=== PATIENT | male | born 1940 | race Two or more races ===

== ENCOUNTER 2024-01-09 16:36 | Inpatient (IN) | payer OTHER ==
[~2024-01-09] VITALS: Ht 170.2 cm; Wt 74.8 kg
[2024-01-09] MEDS ORDERED: CHILDREN'S ASPI81 MG PO (16:49)
[2024-01-09] MEDS ORDERED: COZAAR50 MG PO (16:49)
[2024-01-09] MEDS ORDERED: SIMVASTATIN5 MG PO (16:49)
[2024-01-09] MEDS ORDERED: FLUOXETINE HCL60 MG PO (16:50)
[2024-01-09] MEDS ORDERED: PANTOPRAZOLE SO20 MG PO (16:50)
[2024-01-09] MEDS ORDERED: CLONAZEPAM0.5 MG PO (16:50)
--- NOTE | 2024-01-09 16:53 | NUR ---
SE RECIBE PTE MASCULINO ALERTA Y ORIENTADO SOLO EN PERSONA EN AMBULANCIA POR TOS Y DIFICULTAD RESPIRATORIA DESDE HOY A LA 1PM. SE OLE S/V Y SE UBICA EN AREA DE OBSERVACION PARA EVALUACION MEDICA.
--- NOTE | 2024-01-09 17:17 | NUR ---
PTE MASCULINO EVALUADO POR . SE ORIENTA A CUIDADORA SOBRE ORDEN DE TX REFIERE COMPRENDER. SE COLECTAN MUESTRAS DE LABORATORIOS, BAJO MEDIDAS ASEPTICAS. SE NOTIFICAN ABGS A PERSONAL DE TREAPIA RESPIRATORIA. SE NOTIFICA XARY PENDIENTE A RADIOLGOIA.
[2024-01-09 17:25] LABS: HEMATOCRIT 30.5 % (39.0-48.0); HEMOGLOBIN 10.5 g/dL (13-16.00); MEAN CELL VOLUME 90.2 fL (80.0-100.00); MEAN CORPUSCULAR HGB CONC 34.4 g/dl (32.0-36.0); PLATELET COUNT 171 K/uL (150-450); RED BLOOD COUNT 3.38 M/uL (4.00-6.00); RED CELL DISTRIBUTION WIDTH 13.6 % (11.5-14.5)
[2024-01-09 18:16] LABS: ALBUMIN 2.9 gm/dL (3.4-5.0); BILIRUBIN TOTAL 0.47 mg/dL (0.3-1.2); CALCIUM 8.6 mg/dL (8.5-10.1); CREATININE SERUM 1.83 mg/dL (0.70-1.30); GFR 35.53; GLOBULINA 2.6 G/DL (2.4-3.5); POTASSIUM 4.41 mEq/L (3.5-5.1); TOTAL PROTEIN 5.5 gm/dL (6.4-8.2)
[2024-01-09] MEDS ORDERED: ACETAMINOPHEN 500 MG GEL..CAP PO ONE (18:30)
[2024-01-09 19:10] LABS: URINE APPEARANCE Turbid; URINE BILIRRUBIN Negative (NEGATIVE); URINE BLOOD Large; URINE COLOR Yellow; URINE GLUCOSE Negative (NEGATIVE); URINE LEUKOCYTE Large; URINE NITRATE Negative
[2024-01-09 19:11] LABS: URINE EPITHELIAL CELLS 5.2 uL (0.0-38.8); URINE RBC 30.3 uL (0.0-20.8)
[2024-01-09 19:26] LABS: ABG PO2 79.1 mmHg (80-100); ABG pCO2 32.7 mmHg (35-45); BASE EXCESS -0.2 mmol/l; BICARBONATE 22.8 mmol/l (23-25); SaO2 96.3 %; Tco2 23.8 mmol/l
[2024-01-09 19:27] LABS: allen test SATISFACTORY; o2 21 %; puncture site RADIAL RIGHT
[2024-01-09 20:05] LABS: URINE BACTERIA > 9821.2 uL (0.0-1933); URINE PROTEIN 100 (NEGATIVE); URINE WBC > 5548.3 uL (0.0-23.2)
[2024-01-09] MEDS ORDERED: 0.9 % SODIUM CHLORIDE 1,000 ML IV SCH (21:00)
[2024-01-09] MEDS ORDERED: CEFTRIAXONE SODIUM 2,000 MG in 0.9 % SODIUM CHLORIDE 100 ML IV SCH (21:00)
[2024-01-09] MEDS ORDERED: FAMOTIDINE/PF 20 MG in 0.9 % SODIUM CHLORIDE 8 ML IV PUSH SCH (21:01)
[2024-01-09] MEDS ORDERED: ONDANSETRON HCL 4 MG in 0.9 % SODIUM CHLORIDE 50 ML IV PRN (21:15)
[2024-01-09] MEDS ORDERED: ACETAMINOPHEN 500 MG GEL..CAP PO PRN (21:15)
[2024-01-09 22:16] LABS: INR 1.14; PARTIAL THROMBOPLASTIN TIME 27.3 SECONDS (22.0-34.0); PROTHROMBIN TIME 11.9 SECONDS (9.0-11.5)
[2024-01-09 22:33] LABS: PHOSPHOROUS 1.2 mg/dL (2.5-4.9)
[2024-01-09] MEDS ORDERED: POTASSIUM PHOS,M-BASIC-D-BASIC 9 MM in 0.9 % SODIUM CHLORIDE 250 ML IV ONE (23:00)
[2024-01-10] MEDS ORDERED: LOSARTAN POTASSIUM 50 MG TABLET PO SCH (09:00)
[2024-01-10] MEDS ORDERED: ENOXAPARIN SODIUM 30 MG/0.3 ML SYRINGE SUBCUTANEO SCH (09:00)
[2024-01-10] MEDS ORDERED: ASPIRIN 81 MG TAB.CHEW PO SCH (09:00)
[2024-01-10] MEDS ORDERED: SIMVASTATIN 10 MG TABLET PO SCH (17:00)
[2024-01-10] MEDS ORDERED: LACTOBACILLUS ACIDOPHILUS 1 CAP CAP PO SCH (17:00)
[2024-01-10] MEDS ORDERED: CLONAZEPAM 0.5 MG TABLET PO SCH (21:00)
[2024-01-10] MEDS ORDERED: MEROPENEM 1,000 MG VIAL IV SCH (21:00)
[2024-01-11] MEDS ORDERED: TAMSULOSIN HCL 0.4 MG CAP PO SCH (13:40)
[2024-01-11] MEDS ORDERED: FINASTERIDE 5 MG TABLET PO SCH (13:41)
[2024-01-12 08:29] LABS: BILIRUBIN TOTAL 0.35 mg/dL (0.3-1.2); CALCIUM 9.2 mg/dL (8.5-10.1); CREATININE SERUM 1.67 mg/dL (0.70-1.30); GFR 39.49; GLOBULINA 2.9 G/DL (2.4-3.5); POTASSIUM 3.89 mEq/L (3.5-5.1); TOTAL PROTEIN 5.9 gm/dL (6.4-8.2)
[2024-01-12 08:48] LABS: HEMATOCRIT 29.9 % (39.0-48.0); HEMOGLOBIN 10.3 g/dL (13-16.00); MEAN CELL VOLUME 88.3 fL (80.0-100.00); MEAN CORPUSCULAR HEMOGLOBIN 30.5 pg (27.00-32.0); MEAN CORPUSCULAR HGB CONC 34.5 g/dl (32.0-36.0); PLATELET COUNT 211 K/uL (150-450); RED BLOOD COUNT 3.38 M/uL (4.00-6.00); RED CELL DISTRIBUTION WIDTH 14.2 % (11.5-14.5)
[2024-01-12] MEDS ORDERED: LORazepam 2 MG/ML VIAL IV SCH ×2 (11:12→21:00)
[2024-01-12] MEDS ORDERED: SODIUM CHLORIDE 0.45 % 1,000 ML IV SCH (13:15)
[2024-01-14 05:53] LABS: ALBUMIN 2.7 gm/dL (3.4-5.0); BILIRUBIN TOTAL 0.41 mg/dL (0.3-1.2); CALCIUM 9.1 mg/dL (8.5-10.1); CREATININE SERUM 1.41 mg/dL (0.70-1.30); GLOBULINA 2.5 G/DL (2.4-3.5); POTASSIUM 4.13 mEq/L (3.5-5.1); TOTAL PROTEIN 5.2 gm/dL (6.4-8.2)
[2024-01-14 06:01] LABS: C-REACTIVE PROTEIN 3.24 MG/DL (0.00-0.29)
[2024-01-14 06:02] LABS: PROSTATIC SPECIFIC ANTIGEN 12.1 NG/ML (0.010-4.00)
[2024-01-14 06:16] LABS: PH,URINE 7.5 (5.0-8.0); URINE APPEARANCE Clear; URINE BILIRRUBIN Negative (NEGATIVE); URINE BLOOD NHT; URINE COLOR Yellow; URINE GLUCOSE Negative (NEGATIVE); URINE LEUKOCYTE Small; URINE NITRATE Negative; URINE PROTEIN Negative (NEGATIVE); URINE UROBILINOGEN 0.2 E.U./dl
[2024-01-14 06:18] LABS: URINE BACTERIA 37.7 uL (0.0-1933); URINE EPITHELIAL CELLS 2.4 uL (0.0-38.8); URINE RBC 24.4 uL (0.0-20.8)
[2024-01-14] MEDS ORDERED: CEFTRIAXONE SODIUM 2,000 MG VIAL IV SCH (09:00)
[2024-01-16 05:54] LABS: ALBUMIN 2.8 gm/dL (3.4-5.0); BILIRUBIN TOTAL 0.31 mg/dL (0.3-1.2); CALCIUM 8.9 mg/dL (8.5-10.1); CREATININE SERUM 1.31 mg/dL (0.70-1.30); GFR 52.26; POTASSIUM 3.88 mEq/L (3.5-5.1); TOTAL PROTEIN 5.8 gm/dL (6.4-8.2)
[2024-01-16 05:55] LABS: C-REACTIVE PROTEIN 1.34 MG/DL (0.00-0.29)
[2024-01-17] MEDS ORDERED: SIMVASTATIN10 MG PO (12:35)
[2024-01-17] MEDS ORDERED: COZAAR50 MG PO (12:35)
[2024-01-17] MEDS ORDERED: TAMS0.4C PO (12:35)
[2024-01-17] MEDS ORDERED: INTESTINEX680 M1 PO (12:35)
[2024-01-17] MEDS ORDERED: FINASTERIDE5 MG PO (12:35)
[2024-01-17] MEDS ORDERED: LEVOFLOXACIN500 MG PO (12:35)
[2024-01-17] MEDS ORDERED: CLONAZEPAM0.5 MG PO (12:35)
[2024-01-17] MEDS ORDERED: ADULT ASPIRIN81 MG PO (12:35)
== END 2024-01-17 16:49 | disposition home or self-care (01) | DRG 872 ==
LOC: ER 16:36 → MEDJ 21:51
PROVIDERS: General Practice; Internal Medicine; Internal Medicine Infectious Disease; ADMIT Internal Medicine; ATTEND Internal Medicine
PROC: BW4GZZZ Ultrasonography of Pelvic Region (ICD-10-PCS; principal; 2024-01-11)
PROC: B246ZZZ Ultrasonography of Right and Left Heart (ICD-10-PCS; 2024-01-14)
DX: A41.9 Sepsis, unspecified organism (principal); N39.0 Urinary tract infection, site not specified; N17.8 Other acute kidney failure; B96.20 Unspecified Escherichia coli [E. coli] as the cause of diseases classified elsewhere; I10 Essential (primary) hypertension; Z85.46 Personal history of malignant neoplasm of prostate

== ENCOUNTER 2024-07-05 14:49 | Emergency (ER) | payer OTHER ==
[~2024-07-05] VITALS: Ht 172.7 cm; Wt 54.4 kg
[~2024-07-05 14:49] MED LIST: ADULT ASPIRIN81 MG PO; CHILDREN'S ASPI81 MG PO; CLONAZEPAM0.5 MG PO; COZAAR50 MG PO; FINASTERIDE5 MG PO; FLUOXETINE HCL60 MG PO; INTESTINEX680 M1 PO; LEVOFLOXACIN500 MG PO; PANTOPRAZOLE SO20 MG PO; SIMVASTATIN10 MG PO; SIMVASTATIN5 MG PO; TAMS0.4C PO
[2024-07-05] MEDS ORDERED: 0.9 % SODIUM CHLORIDE 1,000 ML IV ONE (15:30)
[2024-07-05 15:47] LABS: HEMATOCRIT 33.2 % (39.0-48.0); HEMOGLOBIN 11.4 g/dL (13-16.00); MEAN CELL VOLUME 88.6 fL (80.0-100.00); MEAN CORPUSCULAR HEMOGLOBIN 30.6 pg (27.00-32.0); MEAN CORPUSCULAR HGB CONC 34.5 g/dl (32.0-36.0); PLATELET COUNT 181 K/uL (150-450); RED BLOOD COUNT 3.74 M/uL (4.00-6.00); RED CELL DISTRIBUTION WIDTH 13.8 % (11.5-14.5)
[2024-07-05 16:06] LABS: ABG PH 7.464 (7.35-7.45); ABG PO2 84.9 mmHg (80-100); BASE EXCESS 1.5 mmol/l; BICARBONATE 24.9 mmol/l (23-25); Tco2 25.9 mmol/l
[2024-07-05 16:12] LABS: ABG pCO2 35.4 mmHg (35-45); allen test SATISFACTORY; o2 21 %; puncture site RADIAL LEFT
[2024-07-05 16:18] LABS: INR 1.09; PARTIAL THROMBOPLASTIN TIME 24.3 SECONDS (22.0-34.0); PROTHROMBIN TIME 11.8 SECONDS (9.0-11.5)
[2024-07-05 16:24] LABS: ALBUMIN 3.3 gm/dL (3.4-5.0); BILIRUBIN TOTAL 0.36 mg/dL (0.3-1.2); CALCIUM 9.5 mg/dL (8.5-10.1); CREATININE SERUM 1.7 mg/dL (0.70-1.30); GFR 38.59; GLOBULINA 2.9 G/DL (2.4-3.5); POTASSIUM 4.89 mEq/L (3.5-5.1); TOTAL PROTEIN 6.2 gm/dL (6.4-8.2)
[2024-07-05 19:15] LABS: PH,URINE 7.5 (5.0-8.0); URINE APPEARANCE Clear; URINE BILIRRUBIN Negative (NEGATIVE); URINE BLOOD Negative; URINE COLOR Yellow; URINE GLUCOSE Negative (NEGATIVE); URINE KETONE Negative (NEGATIVE); URINE LEUKOCYTE Negative; URINE NITRATE Negative; URINE PROTEIN Negative (NEGATIVE)
[2024-07-05 19:23] LABS: URINE BACTERIA 1.2 uL (0.0-1933); URINE EPITHELIAL CELLS 0.6 uL (0.0-38.8); URINE WBC 0.3 uL (0.0-23.2)
== END 2024-07-05 21:07 | disposition home or self-care (01) ==
LOC: ER 14:49
PROVIDERS: General Practice
DX: R42 Dizziness and giddiness (principal); I10 Essential (primary) hypertension; Z20.822 Contact with and (suspected) exposure to COVID-19
CPT/HCPCS: 36415; 70450; 71045; 82803; 93041; 96365; 96366; 99284; J7030